=== PATIENT | female | born 1970 | race Caucasian/White ===

== ENCOUNTER → 2016-11-10 | Outpatient (CLI) | payer BC ==
--- NOTE | 2016-11-11 13:47 | MM ---
Reason for exam: screening (asymptomatic). Last mammogram was performed 3 years and 11 months ago. History: Family history of breast cancer in mother at age 42. Physical Findings: A clinical breast exam by your physician is recommended on an annual basis and results should be correlated with mammographic findings. MG Screening Mammo w CAD Bilateral CC and MLO view(s) were taken. Prior study comparison: December 07, 2012, bilateral digital screening mammo w/CAD. October 07, 2009, bilateral digital screening mammogram. The breast tissue is heterogeneously dense. This may lower the sensitivity of mammography. Finding: There are typically benign round, regional calcifications in the lower quadrant, posterior position of the left breast. There is no discrete abnormality. ASSESSMENT: Benign, BI-RAD 2 RECOMMENDATION: Routine screening mammogram of both breasts in 1 year.
== END | disposition home or self-care (01) ==
LOC: RADMAMWWP 07:11
PROVIDERS: ATTEND Family Medicine
DX: Z12.31 Encounter for screening mammogram for malignant neoplasm of breast (principal)

== ENCOUNTER → 2017-11-28 | Outpatient (CLI) | payer BC ==
[2017-11-28 15:02] VITALS: BP 135/65; PULSE 69; TEMP 98.2; BMI 52.3
--- NOTE | 2017-11-28 15:08 | P.BASOAP ---
Subjective Progress Note Date: 11/28/17 Principal diagnosis: Morbid obesity Patient is known to our service. She had her lap band [place] in [address] [place] She has had episodes of chest pain and occasional vomiting. She is interested in band removal at this time. She is unsure how much fluid is in her band. She had a normal EGD performed recently. She was started on antiacids following that with some improvement in her symptoms. Objective - Vital Signs Vital signs: Vital Signs Temp 98.2 F 11/28/17 14:35 Pulse 69 11/28/17 14:35 Resp BP 135/65 11/28/17 14:35 Pulse Ox Intake & Output 11/27/17 11/28/17 11/28/17 18:59 06:59 18:59 Weight 147.055 kg - Exam Abdomen: Soft, nontender, nondistended Assessment/Plan (1) Morbid obesity Narrative/Plan: Will empty the patient's band at this time. Following that we'll schedule for lap band removal. The patient's lap band port was palpated. The site was aseptically prepped. 1% lidocaine was infiltrated into the subcutaneous tissues through a diabetic syringe. The Gaffney needle was advanced into the port. Aspiration took place. A total of 0.5ml of fluid was evacuated. Pressure was held and a sterile dressing was applied. Plan: Date: 11/28/17 Initial Weight: Initial BMI: Current Weight: 147.055 kg Current BMI: 52.3 Type of Surgery: Total Volume in Band: 0 Previous Volume: Volume Removed: 0.6 Volume Added: Band Size:
== END | disposition home or self-care (01) ==
LOC: BARWHC3 13:52
PROVIDERS: ATTEND Surgery
DX: Z48.815 Encounter for surgical aftercare following surgery on the digestive system (principal); E66.01 Morbid (severe) obesity due to excess calories; Z68.43 Body mass index [BMI] 50.0-59.9, adult
CPT/HCPCS: 99202

== ENCOUNTER 2018-01-10 07:07 | Day surgery (SDC) | payer BC ==
[2018-01-03 14:34] VITALS: BMI 54.1
[~2018-01-10 07:07] MED LIST: CLINDAMYCIN 900 MG in DEXTROSE 5% IN WATER 50 ML IVPB ONE; DEXAMETHASONE SOD PHOSPHATE 10 MG/ML 1 ML VIAL IV ONE; ENOXAPARIN 40 MG/0.4 ML SYRINGE SQ ONE; GENTAMICIN 460 MG in SODIUM CHLORIDE 0.9% 100 ML IVPB ONE; HYDROmorphone 0.5 MG/0.5 ML SYRINGE IVP PRN; LACTATED RINGERS 1,000 ML IV SCH; ONDANSETRON 4 MG/2 ML VIAL IVP ONE
[2018-01-10] MEDS ORDERED: LIDOCAINE 1% 20 ML VIAL (10MG/ML) FOR IV START INTRADERMA ONE (07:16)
--- NOTE | 2018-01-10 07:43 | P.GSHP ---
History of Present Illness H&P Date: 01/10/18 Chief Complaint: GERD, vomiting patient is known to our service. She had a previous lap band placed in 2003 at a different institution.lately she has had complaints of chest pain and vomiting. She also has heartburn at times. She is interested in lap band removal.the patient was seen in November her lap band was emptied.previous EGD showed no definite abnormalities. Past Medical History Past Medical History: GERD/Reflux, Hypertension Additional Past Medical History / Comment(s): intermittent epigastric pain History of Any Multi-Drug Resistant Organisms: None Reported Past Surgical History: Bariatric Surgery, Cholecystectomy, Hernia Repair, Hysterectomy Additional Past Surgical History / Comment(s): lap band 2003 Past Anesthesia/Blood Transfusion Reactions: Previous Problems w/ Anesthesia Additional Past Anesthesia/Blood Transfusion Reaction / Comment(s): two episodes of apnea during egd procedures, but never had trouble w/general anesthesia Smoking Status: Never smoker - Past Family History Father Family Medical History: Cancer, Deep Vein Thrombosis (DVT) Medications and Allergies Home Medications Medication Instructions Recorded Confirmed Type Escitalopram [Lexapro] 20 mg PO 1300 11/28/17 01/10/18 History Furosemide [Lasix] 20 mg PO DAILY PRN 11/28/17 01/10/18 History Hydrochlorothiazide 50 mg PO DAILY 11/28/17 01/10/18 History Omeprazole 20 mg PO 1200 11/28/17 01/10/18 History Ibuprofen [Motrin] 400 mg PO HS PRN 01/03/18 01/10/18 History Allergies Allergy/AdvReac Type Severity Reaction Status Date / Time cefaclor [From Ceclor] Allergy Rash/Hives Verified 01/10/18 07:15 Surgical - Exam Vital Signs Temp Pulse Resp BP Pulse Ox 98 F 90 16 147/70 95 01/10/18 07:21 01/10/18 07:21 01/10/18 07:21 01/10/18 07:21 01/10/18 07:21 The patient denies any acute changes in vision or hearing, no dysphagia or odynophagia, no chest pain or shortness of breath, no dysuria or hematuria, no headache, no runny nose, no rectal bleeding or melena, no unexplained weight loss Assessment and Plan (1) Vomiting Narrative/Plan: Will proceed with lap band removal at this time. Risks of bleeding, infection, perforation, trocar injury, conversion to an open procedure, findings of gastric erosion were discussed. She understands and wishes to proceed. Current Visit: Yes Status: Acute Code(s): R11.10 - VOMITING, UNSPECIFIED SNOMED Code(s): 849016850
[2018-01-10] MEDS ORDERED: MIDAZOLAM 2 MG/2 ML VIAL IV ONE ×2 (07:50)
[2018-01-10] MEDS ORDERED: GLYCOPYRROLATE 0.2 MG/ML 2 ML VIAL ONE (08:02)
[2018-01-10] MEDS ORDERED: HYDROmorphone (PF) 1 MG/ML ONE (08:02)
[2018-01-10] MEDS ORDERED: SUCCINYLCHOLINE CHLORIDE VIAL 200 MG/10 ML VIAL IV ONE (08:02)
[2018-01-10] MEDS ORDERED: ePHEDrine SULFATE/0.9% NACL/PF 50 MG/5 ML SYRINGE IV ONE (08:02)
[2018-01-10] MEDS ORDERED: LIDOCAINE 1% INJ 10MG/ML (20 ML MDV) ONE (08:02)
[2018-01-10] MEDS ORDERED: ROCURONIUM BROMIDE 10 MG/ML 10 ML VIAL IV ONE (08:02)
[2018-01-10] MEDS ORDERED: fentaNYL (PF) 50 MCG/ML 2 ML AMP ONE (08:02)
[2018-01-10] MEDS ORDERED: NEOSTIGMINE 1 MG/ML 10 ML VIAL ONE (08:02)
[2018-01-10] MEDS ORDERED: PROPOFOL 10 MG/ML 20 ML VIAL IV ONE (08:02)
[2018-01-10] MEDS ORDERED: BUPIVACAINE (PF) 0.25% 30 ML VIAL SQ ONE ×2 (08:55→09:06)
[2018-01-10] MEDS ORDERED: HYDROcodone/APAP 5-325MG 1 EACH TAB PO PRN (09:47)
[2018-01-10] MEDS ORDERED: NALOXONE 0.4 MG/ML 1 ML VIAL IV PRN (09:47)
[2018-01-10 09:59] VITALS: TEMP 96.8
--- NOTE | 2018-01-10 10:08 | P.OP ---
Date of Procedure: 01/10/18 Procedure(s) Performed: PREOPERATIVE DIAGNOSIS: Band intolerance/abdominal pain POSTOPERATIVE DIAGNOSIS: Same PROCEDURE: Laparoscopic lap band removal SURGEON: Karina EBL: Minimal ANESTHESIA: General COMPLICATIONS: None OPERATIVE PROCEDURE: The patient was brought and placed on the operating room table in the supine position. The patient was placed under general anesthesia at that time. The patient was then placed in lithotomy. The abdomen was prepped and draped in the usual sterile fashion. A 5 mm trocar was used to enter the peritoneal cavity in the left upper quadrant. There were some adhesions to the abdominal wall in that location. I was able to create a small window using the optical trocar and full insufflation took place. Further blunt dissection of the loose adhesions took place laterally and superiorly. At that point two additional 5 mm trochars were placed one in the lateral left upper quadrant and one superior to our initial trocar placement. I was then able to use sharp dissection to divide some additional adhesions superiorly. A 5 mm trocar was placed and then removed and the medium Rubens hook was used to elevate the left lobe of the liver. The band tubing and adhesions around the band were then identified. The band tubing was cut. There were adhesions to the band and the buckle that were lysed using electrocautery. The band was then cut using the laparoscopic shan. At that point the previous port incision in the right upper quadrant was incised. Dissection through the subcutaneous fat took place using ultra cautery. The port was able to be removed easily. I was able to create a window intra-abdominally towards the midline and a 15 mm trocar was advanced through this incision site tangentially towards the left midabdomen. The band was then removed easily in 2 portions through the 15 mm trocar site. The stomach itself was inspected and revealed no evidence of erosion or prolapse. The trochars were removed. The fascia at the 15 mm site was closed using a Ankur-Alex 0 Vicryl stitch. The subcutaneous tissues at the port site was closed using a 3-0 Vicryl suture. The skin at all 5 incision sites were closed using 4-0 Monocryl sutures. Steri- Strips and sterile dressings were then applied. DISPOSITION: Stable to recovery room
[2018-01-10 11:34] VITALS: BP 122/84; PULSE 100; RESP 18
[2018-01-10] MEDS ORDERED: HYDROcodone/APAP 5-325MG 1 EACH TAB PO ONE (11:38)
== END 2018-01-10 12:57 | disposition home or self-care (01) ==
LOC: OR 07:07
PROVIDERS: ATTEND Surgery
DX: K95.09 Other complications of gastric band procedure (principal); R11.10 Vomiting, unspecified; R10.13 Epigastric pain; K21.9 Gastro-esophageal reflux disease without esophagitis; E66.01 Morbid (severe) obesity due to excess calories; Z68.43 Body mass index [BMI] 50.0-59.9, adult; F32.9 Major depressive disorder, single episode, unspecified; I10 Essential (primary) hypertension; Z79.899 Other long term (current) drug therapy; Z88.1 Allergy status to other antibiotic agents
CPT/HCPCS: 43774; J2250; J0330; J1100; J2710; J2405; J2001; J1650; J3010; J1580; J1170 ×2; J2704

== ENCOUNTER → 2018-01-30 | Outpatient (CLI) | payer BC ==
[2018-01-30 13:25] VITALS: BP 135/89; PULSE 73; RESP 16; TEMP 97.8; BMI 52.2
--- NOTE | 2018-01-30 15:57 | P.PN ---
Subjective Progress Note Date: 01/30/18 Principal diagnosis: Morbid obesity Patient returns after recent laparoscopic lap band removal. Doing well at this time. Minimal pain. He has had a few episodes of belching and regurgitation. At the time of her surgery she had significant abdominal adhesions possibly even limiting future attempts at upper abdominal laparoscopy. Objective - Vital Signs Vital signs: Vital Signs Temp 97.8 F 01/30/18 13:22 Pulse 73 01/30/18 13:22 Resp 16 01/30/18 13:22 BP 135/89 01/30/18 13:22 Pulse Ox Intake & Output 01/29/18 01/30/18 01/30/18 18:59 06:59 18:59 Weight 146.765 kg - Exam Abdomen: Soft, nontender, nondistended, incision clean and dry Assessment and Plan (1) Morbid obesity Narrative/Plan: Continue to monitor her incision sites. Gradually resume normal activities. Follow-up as needed. Current Visit: No Status: Acute Code(s): E66.01 - MORBID (SEVERE) OBESITY DUE TO EXCESS CALORIES SNOMED Code(s): 011008071
== END | disposition home or self-care (01) ==
LOC: BARWHC3 12:52
PROVIDERS: ATTEND Surgery
DX: E66.01 Morbid (severe) obesity due to excess calories (principal); Z68.43 Body mass index [BMI] 50.0-59.9, adult
CPT/HCPCS: 99211

== ENCOUNTER → 2018-02-27 | Outpatient (CLI) | payer BC ==
--- NOTE | 2018-02-28 11:54 | MM ---
Reason for exam: screening (asymptomatic). Last mammogram was performed 1 year and 4 months ago. History: Family history of breast cancer in mother at age 42. Physical Findings: A clinical breast exam by your physician is recommended on an annual basis and results should be correlated with mammographic findings. MG 3D Screening Mammo W/Cad Bilateral CC and MLO view(s) were taken. Prior study comparison: November 10, 2016, bilateral MG screening mammo w CAD. December 07, 2012, bilateral digital screening mammo w/CAD. The breast tissue is heterogeneously dense. This may lower the sensitivity of mammography. Finding: There are typically benign skin calcifications in both breasts. No suspicious abnormality. ASSESSMENT: Benign, BI-RAD 2 RECOMMENDATION: Routine screening mammogram of both breasts in 1 year.
== END | disposition home or self-care (01) ==
LOC: RADMAMWWP 07:07
PROVIDERS: ATTEND Family Medicine
DX: Z12.31 Encounter for screening mammogram for malignant neoplasm of breast (principal)
CPT/HCPCS: 77063; 77067

== ENCOUNTER → 2018-10-03 | Outpatient (CLI) | payer BC ==
--- NOTE | 2018-10-03 09:43 | CT ---
EXAMINATION TYPE: CT abdomen w con DATE OF EXAM: 10/03/2018 COMPARISON: 01/04/2013 HISTORY: 40-year-old female RUQ pain TECHNIQUE: Contiguous axial scanning of the abdomen following administration of 100 ml Isovue 300 IV contrast. Delayed images through the kidneys and coronal/sagittal reconstructions performed. CT DLP: 3831.7 mGycm Automated exposure control for dose reduction was used. FINDINGS: Heart normal size without pericardial effusion. Lung bases clear without pleural effusion. There is a small hiatal hernia. Patient's previously seen LAP-BAND has been removed. Liver enlarged measuring 30.4 cm. Part of this enlargement is suspected to relate to a Dipti's lobe. Diffuse low-attenuation is present. No focal lesion. Gallbladder not seen, likely surgically absent. Adrenal glands, spleen, pancreas appear within normal limits. 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 Punctate 2 mm nonobstructive calculus on the left . No dilated small bowel, free fluid, or free air. No mesenteric or retroperitoneal lymphadenopathy. Mild stool throughout the visualized colon without pericolonic inflammatory change. Suspect simple surgical changes along the region of the umbilicus. The pelvis is not imaged. Bones: Prominent artifact due to large patient body habitus limiting assessment of the lumbar spine. IMPRESSION: 1. MARKED HEPATOMEGALY (30.4 CM) LIKELY IN PART DUE TO THE PRESENCE OF A DIPTI'S LOBE. HOWEVER, THER E IS MODERATE TO SEVERE UNDERLYING HEPATIC STEATOSIS. CORRELATE WITH LFT's, LIPID PROFILE, AND PATIEN T RISK FACTORS. 2. REMOVAL OF THE PATIENT'S LAP BAND SEEN IN 2012. THERE IS A SMALL HIATAL HERNIA DEMONSTRATED. 3. HORSESHOE KIDNEY WITH PUNCTATE 2 MM NONOBSTRUCTIVE CALCULUS ON THE LEFT.
== END ==
LOC: RADCTMAIN 08:11
PROVIDERS: ATTEND Family Medicine
DX: K76.0 Fatty (change of) liver, not elsewhere classified (principal); R16.0 Hepatomegaly, not elsewhere classified; K44.9 Diaphragmatic hernia without obstruction or gangrene; Q63.1 Lobulated, fused and horseshoe kidney; N20.0 Calculus of kidney; Z00.00 Encounter for general adult medical examination without abnormal findings
CPT/HCPCS: 74160; Q9967

== ENCOUNTER → 2018-11-29 | Outpatient (CLI) | payer BC ==
--- NOTE | 2018-11-29 12:33 | XR ---
EXAMINATION TYPE: XR knee complete LT DATE OF EXAM: 11/29/2018 COMPARISON: NONE HISTORY: Pain TECHNIQUE: Four views are submitted. FINDINGS: Severe arthropathy of the patellofemoral joint with small suprapatellar bursal fluid collection. A mi ld to moderate narrowing of the medial compartment the knee joint.. Osseous structures are intact. No acute fracture seen. IMPRESSION: 1. Arthropathy of the knee with most marked findings involving the patellofemoral joint which can be associated with osteoarthritis or depositional arthropathy.
== END ==
LOC: RADXRMAIN 11:55
PROVIDERS: ATTEND Family Medicine
DX: M17.12 Unilateral primary osteoarthritis, left knee (principal)

== ENCOUNTER → 2018-12-20 | Outpatient (CLI) | payer BC ==
--- NOTE | 2018-12-20 14:56 | MR ---
EXAMINATION TYPE: MR knee LT wo con DATE OF EXAM: 12/20/2018 COMPARISON: Left knee x-ray dated 11/29/2018 HISTORY: Left knee pain TECHNIQUE: Multiplanar, multisequence imaging of the left knee is performed without IV contrast. FINDINGS: LATERAL MENISCUS: There is a radial tear of the posterior horn of the free edge of the left lateral m eniscus with blunting of the normal triangle or appearance on sagittal image 13 of the PD fat-sat seq uence. MEDIAL MENISCUS: Anterior and posterior horns are intact without tear. CRUCIATE LIGAMENTS: The anterior and posterior cruciate ligaments are intact. Small ganglion is seen superior to the posterior cruciate ligament on axial image 11 and 12 on the T2 fat-sat sequence. COLLATERAL LIGAMENTS: The medial collateral ligament and lateral collateral ligament complex are inta ct and unremarkable. Fluid is seen superficial to the medial collateral ligament. EXTENSOR MECHANISM: Visualized quadriceps and patellar tendons are intact. There is high signal at th e insertion of the patellar tendon and quadriceps tendon. Patellar subcutaneous edema is noted as wel l as infrapatellar subcutaneous edema. EFFUSION: There is a small suprapatellar joint effusion with internal complexity at the lateral jazmine in indicative of synovitis. POPLITEAL CYST: No popliteal/hernandez cyst. TRICOMPARTMENT SPACES: There are small tricompartmental osteophytes present. CARTILAGE: There is generalized thinning and heterogenous signal of the medial compartment cartilage. Undermining is seen of the lateral tibial and femoral cartilage focally overlying the posterior meni scal radial tear on image 11 and 12 with partial chondral defect of the tibial plateau at this locati on measuring 7 mm. Within the patellofemoral compartment there is full-thickness cartilaginous loss o f the patellar apex and partial-thickness of the lateral patellar facet with signal heterogeneity of the medial facet and trochlear cartilage. BONE MARROW SIGNAL: No focal abnormal marrow signal is appreciated. IMPRESSION: 1. Radial tear of the free edge of the posterior horn of the lateral meniscus. 2. Overall moderate tricompartmental arthrosis with mild chondrosis of the medial and lateral compart ments and severe chondrosis of the patellofemoral compartment with full-thickness cartilaginous defec t of the patellar apex and partial thickness cartilaginous defect of the lateral compartment. 3. Findings suggesting medial collateral ligament bursitis. 4. Slight high signal of the insertion of the patellar tendon and quadriceps tendon suggesting mild i nsertional tendinosis.
== END | disposition home or self-care (01) ==
LOC: RADMRIMAIN 13:17
PROVIDERS: ATTEND Orthopaedic Surgery
DX: S83.282A Other tear of lateral meniscus, current injury, left knee, initial encounter (principal); M94.8X6 Other specified disorders of cartilage, lower leg; M67.864 Other specified disorders of tendon, left knee; M17.12 Unilateral primary osteoarthritis, left knee

== ENCOUNTER → 2019-03-08 | Outpatient (CLI) | payer BC | LOC: LABPAT 11:37 | PROVIDERS: ATTEND Anesthesiology | DX: Z01.818 Encounter for other preprocedural examination (principal); Z01.812 Encounter for preprocedural laboratory examination | CPT/HCPCS: 36415; 84132; 93005 ==

== ENCOUNTER 2019-03-12 10:08 | Day surgery (SDC) | payer BC ==
[2019-03-07 11:40] VITALS: BMI 56.5
[~2019-03-12 10:08] MED LIST changes: -DEXAMETHASONE SOD PHOSPHATE 10 MG/ML 1 ML VIAL IV ONE; -ENOXAPARIN 40 MG/0.4 ML SYRINGE SQ ONE; -GENTAMICIN 460 MG in SODIUM CHLORIDE 0.9% 100 ML IVPB ONE; -HYDROmorphone 0.5 MG/0.5 ML SYRINGE IVP PRN; +KETOROLAC 30 MG/ML 1 ML VIAL IVP SCH; +LIDOCAINE 1% 20 ML VIAL (10MG/ML) FOR IV START INTRADERMA PRN; +MIDAZOLAM (PF) 2 MG/2 ML VIAL IV PRN; -ONDANSETRON 4 MG/2 ML VIAL IVP ONE; +ONDANSETRON 4 MG/2 ML VIAL IVP PRN
[2019-03-12] MEDS ORDERED: SUCCINYLCHOLINE CHLORIDE VIAL 200 MG/10 ML VIAL IV ONE (11:05)
[2019-03-12] MEDS ORDERED: fentaNYL (PF) 50 MCG/ML 2 ML AMP ONE (11:05)
[2019-03-12] MEDS ORDERED: LIDOCAINE 1% INJ 10MG/ML (20 ML MDV) ONE (11:05)
[2019-03-12] MEDS ORDERED: MIDAZOLAM 2 MG/2 ML VIAL ONE (11:05)
[2019-03-12] MEDS ORDERED: PROPOFOL 10 MG/ML 20 ML VIAL IV ONE (11:05)
[2019-03-12] MEDS ORDERED: BUPIVACAINE (PF) 0.5% 30 ML VIAL INTRAARTIC ONE (11:30)
--- NOTE | 2019-03-12 11:56 | P.OP ---
Date of Procedure: 03/12/19 Preoperative Diagnosis: 1. Torn lateral meniscus left knee 2. Osteoarthritis Postoperative Diagnosis: 1. Torn lateral meniscus left knee 2. 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 Synovitis Procedure(s) Performed: 1. Arthroscopy left knee with partial lateral meniscectomy (15% of the meniscus excised) 2. Chondroplasty lateral femoral and patellofemoral compartments 3. Partial synovectomy of the knee give femoral, lateral femoral, patell ofemoral compartments Anesthesia: GETA Surgeon: Guanaco Daniel Supervisor Tan Room #1: Marcy Logan Estimated Blood Loss (ml): 5 Pathology: none sent Condition: stable Disposition: PACU Indications for Procedure: This is a 48-year-old female that presented to my office with pain in her left knee. MRI was performed confirmed a torn lateral meniscus. After failure of conservative treatment we discussed the surgical and nonsurgical treatment options with her at length, and she wishes to proceed with arthroscopic debridement of her left knee and informed consent was obtained. Operative Findings: The operative findings are consistent with a torn lateral meniscus as well as grade 2-3 chondromalacia changes of the lateral femoral and patellofemoral compartments and synovitis. Description of Procedure: Patient was seen and evaluated in the preoperative area, the operative site was marked with a skin marker. The patient was then brought to the operating room and given 1 g of Ancef intravenously. A general anesthetic was administered by the anesthesia department. Tourniquet was placed on the left upper thigh and the left lower extremity was then prepped and draped in usual sterile fashion. A universal timeout was then performed confirming the patient's name, surgical site, ALLERGIES, and consent. The limb was then exsanguinated and tourniquet insufflated to 250 mmHg. Standard inferior medial and inferior lateral portals were established in the knee. The trochar was inserted in the inferolateral portal. Examination began at the patellofemoral joint. There is noted to be grade 2-3 chondral malacia the patellofemoral compartment and a moderate amount of synovitis. Next the medial compartment was visualized. The medial meniscus is intact.. There was no evidence of chondral malacia of the mediofemoral compartment. There was a moderate amount of synovitis. The notch area was then visualized and ACL PCL were intact. The Lateral compartment was then visualized and there was a tear of the posterior horn of the lateral meniscus. There was a 2-3 chondromalacia of the lateral femoral compartment and a mild amount of synovitis. Next, using an arthroscopic shaver and a biter, partial lateral meniscectomy was performed stable margins. Approximately 15% of the lateral meniscus was excised. A partial synovectomy is performed the medial femoral, lateral femoral, patellofemoral compartments. Chondroplasty was also performed of the lateral femoral and patellofemoral compartments of the knee. Knee was then copiously irrigated, instruments removed, incisions were closed with 4-0 nylon. 30 mL of quarter percent plain Marcaine were injected sterilely into the surgical area. A sterile dressing was then applied, and the tourniquet was released. Patient was then transferred to recovery room in stable condition.
[2019-03-12 12:00] VITALS: TEMP 97.1
[2019-03-12 12:03] VITALS: RESP 16
[2019-03-12] MEDS: HYDROmorphone 0.5 MG/0.5 ML SYRINGE IVP PRN ×2 (12:17→12:22)
[2019-03-12] MEDS ORDERED: HYDROcodone/APAP 7.5-325MG 1 EACH TAB PO ONE (13:05)
[2019-03-12 13:09] VITALS: PULSE 80
[2019-03-12 13:26] VITALS: BP 124/83
== END 2019-03-12 14:06 | disposition home or self-care (01) ==
LOC: OR 10:08
PROVIDERS: ATTEND Orthopaedic Surgery
DX: S83.282A Other tear of lateral meniscus, current injury, left knee, initial encounter (principal); X58.XXXA Exposure to other specified factors, initial encounter; M19.90 Unspecified osteoarthritis, unspecified site; M94.262 Chondromalacia, left knee; M65.9 Synovitis and tenosynovitis, unspecified; I10 Essential (primary) hypertension; E03.9 Hypothyroidism, unspecified; K21.9 Gastro-esophageal reflux disease without esophagitis; F32.9 Major depressive disorder, single episode, unspecified; Z98.84 Bariatric surgery status; Z90.710 Acquired absence of both cervix and uterus; Z79.1 Long term (current) use of non-steroidal anti-inflammatories (NSAID); Z79.890 Hormone replacement therapy; Z79.899 Other long term (current) drug therapy; Z88.1 Allergy status to other antibiotic agents
CPT/HCPCS: 29881; J2250; J0330; J2405; J2001; J3010; J2704; J1170

== ENCOUNTER → 2019-05-28 | Outpatient (CLI) | payer BC ==
--- NOTE | 2019-05-28 15:41 | XR ---
Right foot HISTORY: Pain, trauma 5 days prior 2 views of the right foot Degenerative change present at the first metatarsophalangeal joint. Bone mineralization is reduced. T here is a plantar calcaneal spur. Mild degenerative change at the intertarsal and tibiotalar joints. Alignment is maintained. Small ossific density distal to the medial malleolus is thought likely to be well-corticated and not acute. Correlate for point tenderness. IMPRESSION: No fracture or dislocation. Additional findings above.
== END | disposition home or self-care (01) ==
LOC: RADXRMAIN 11:39
PROVIDERS: ATTEND Family Medicine
DX: M79.671 Pain in right foot (principal)

== ENCOUNTER → 2022-09-06 | Outpatient (CLI) | payer BC ==
[2022-09-06 14:44] LABS: Basophils # (A) 0.03 X 10*3/uL (0.00-0.10); Basophils % (A) 0.4 %; Eosinophils # (A) 0.17 X 10*3/uL (0.04-0.35); Eosinophils % (A) 2.4 %; HCT 47.5 % (37.2-46.3); HGB 15.2 g/dL (12.0-15.0); Immature Grans, Automated 0.4 %; Lymphocytes # (A) 1.46 X 10*3/uL (0.90-5.00); Lymphocytes % (A) 20.7 %; MCH 31.5 pg (27.0-32.0); MCV 98.3 fL (80.0-97.0); Mean Platelet Volume 10.1 fL (9.5-12.2); Monocytes # (A) 0.52 X 10*3/uL (0.20-1.00); Monocytes % (A) 7.4 %; NRBC Per 100 WBC 0 /100 WBCS (0.0-0.0); Neutrophils # (A) 4.83 X 10*3/uL (1.80-7.70); Neutrophils % (A) 68.7 %; Platelet Count 282 X 10*3/uL (140-440); RBC 4.83 X 10*6/uL (4.10-5.20); RDW 12.6 % (11.5-14.5); WBC 7.04 X 10*3/uL (4.50-10.00)
[2022-09-06 15:01] LABS: C Reactive Protein 0.9 mg/dL (0.00-0.80); Prolactin 28.9 ng/mL (2.800-29.200)
[2022-09-06 19:40] LABS: DHEA Sulfate 29.4 ug/dL (26.0-430.0)
[2022-09-06 22:35] LABS: ACTH 21.6 pg/mL (0.00-45.99)
[2022-09-07 04:35] LABS: Apolipoprotein A1 149 mg/dL (125 - 215)
== END | disposition home or self-care (01) ==
LOC: LABWHC1 07:53
PROVIDERS: ATTEND Nurse Practitioner Adult Health
DX: E63.8 Other specified nutritional deficiencies (principal); E27.40 Unspecified adrenocortical insufficiency; N95.9 Unspecified menopausal and perimenopausal disorder; E66.01 Morbid (severe) obesity due to excess calories; D68.4 Acquired coagulation factor deficiency; D68.69 Other thrombophilia; E88.1 Lipodystrophy, not elsewhere classified; R73.9 Hyperglycemia, unspecified; R65.10 Systemic inflammatory response syndrome (SIRS) of non-infectious origin without acute organ dysfunction
CPT/HCPCS: 36415; 81291; 82024; 82150; 82172; 82180; 82533; 82626; 82627; 82947; 83690; 84146; 84255; 84270; 84590; 84630; 85025; 86140